=== PATIENT | female | born 1995 | race Caucasian/White ===

== ENCOUNTER 2020-04-16 21:24 | Emergency (ER) | payer MEDICAID ==
--- NOTE | 2020-04-16 21:51 | EDM.PDOC ---
ED HPI GENERAL MEDICAL PROBLEM - General Chief Complaint: Respiratory Problem Stated Complaint: COUGH, FEVER Time Seen by Provider: 04/16/20 21:45 Source of Information: Reports: Patient History Limitations: Reports: No Limitations - History of Present Illness INITIAL COMMENTS - FREE TEXT/NARRATIVE: Patient presented to the ED because of sore throat, dry cough x2 days. There is fever/chills. Denies any dyspnea,N/V/D. ED ROS GENERAL - Review of Systems Review Of Systems: See Below Constitutional: Reports: Fever, Chills HEENT: Reports: No Symptoms Respiratory: Reports: Cough Cardiovascular: Reports: No Symptoms Endocrine: Reports: No Symptoms GI/Abdominal: Reports: No Symptoms : Reports: No Symptoms Musculoskeletal: Reports: No Symptoms Skin: Reports: No Symptoms Neurological: Reports: No Symptoms Psychiatric: Reports: No Symptoms ED EXAM, GENERAL - Physical Exam Exam: See Below Exam Limited By: No Limitations General Appearance: Alert, No Apparent Distress Ears: Normal External Exam, Normal Canal, Hearing Grossly Normal Nose: Normal Inspection, Normal Mucosa, No Blood Throat/Mouth: Normal Inspection, Normal Lips, Normal Teeth, Normal Gums Head: Atraumatic, Normocephalic Neck: Normal Inspection, Supple, Non-Tender, Full Range of Motion Respiratory/Chest: No Respiratory Distress, Lungs Clear, Normal Breath Sounds Cardiovascular: Normal Peripheral Pulses, Regular Rate, Rhythm, No Edema, No Gallop GI/Abdominal: Normal Bowel Sounds, Soft, Non-Tender Back Exam: Normal Inspection, Full Range of Motion Extremities: Normal Inspection, Normal Range of Motion, Non-Tender Neurological: Alert, Oriented, CN II-XII Intact Course - Vital Signs Text/Narrative:: Covid test-pending - Orders/Labs/Meds Orders: Active Orders 24 hr Category Date Time Status CORONAVIRUS (COVID19) [facility] Routine Lab 04/16/20 21:44 Ordered Departure - Departure Time of Disposition: 21:50 Disposition: Home, Self-Care 01 Condition: Good Clinical Impression: Acute viral syndrome - Discharge Information Instructions: Viral Respiratory Infection, [id number] Additional Instructions: Please read discharge instructions on viral upper respiratory infection Frequent hand washing Increase oral fluids Follow up your COVID test result in 3-5 days - My Orders Last 24 Hours: My Active Orders 04/16/20 21:44 CORONAVIRUS (COVID19) [facility] Routine - Assessment/Plan Last 24 Hours: My Active Orders 04/16/20 21:44 CORONAVIRUS (COVID19) [facility] Routine
[2020-04-18 19:18] LABS: CORNONAVIRUS (COVID19) CSH-NRL Negative (Negative)
== END 2020-04-16 21:52 | disposition home or self-care (01) ==
LOC: FB.ED 21:24
DX: B34.9 Viral infection, unspecified (principal); Z20.828 Contact with and (suspected) exposure to other viral communicable diseases
CPT/HCPCS: 99283; U0003

== ENCOUNTER 2020-04-29 18:32 | Emergency (ER) | payer MEDICAID ==
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
[2020-04-29] MEDS: cefTRIAXone 1 GM Vial IM ONE (18:51)
[2020-04-29] MEDS: Diphtheria,Pertussis(Acell),Tetanus Vaccine 0.5 ML Syringe IM ONE (18:51)
[2020-04-29] MEDS: Amoxicillin/Clavulanate K 875-125 MG Tab PO ONE (18:52)
== END 2020-04-29 20:03 | disposition home or self-care (01) ==
LOC: FB.ED 18:32
DX: S61.256A Open bite of right little finger without damage to nail, initial encounter (principal); Z23 Encounter for immunization; X58.XXXA Exposure to other specified factors, initial encounter; Y99.0 Civilian activity done for income or pay
CPT/HCPCS: 90471; 90715; 96372; 99000; 99283; A9270-GY; J0696